=== PATIENT | male | born 1965 | race Caucasian/White ===

== ENCOUNTER → 2022-02-08 09:46 | Outpatient (CLI) | payer OTHER, SELFPAY | PROVIDERS: Visit Provider Plastic Surgery | DX: Z01.812 Encounter for preprocedural laboratory examination (principal); Z11.52 Encounter for screening for COVID-19; S67.21XS Crushing injury of right hand, sequela | CPT/HCPCS: C9803; U0003; U0005 ==

== ENCOUNTER 2022-06-18 11:00 | Outpatient (RCR) | payer OTHER, SELFPAY | END 2022-06-18 11:05 | disposition home or self-care (01) | LOC: OT 11:00 | PROVIDERS: Visit Provider Physician Assistant Medical | DX: S67.21XS Crushing injury of right hand, sequela (principal) | CPT/HCPCS: 97010; 97014; 97110; 97140; 97164; 97166; 97530; G0283 ==